=== PATIENT | male | born 1965 | race Caucasian/White ===

== ENCOUNTER → 2016-04-29 | Outpatient (REF) | payer BC ==
[~2016-04-29] MED LIST: AMLO; AMLODIPINE; ASPI1TAB PO; LISIPOW; OMEPPOW18; ZOCO10TA PO
== END ==
LOC: M LAB REF 13:00
PROVIDERS: ATTEND Internal Medicine
DX: E29.1 Testicular hypofunction (principal); N52.9 Male erectile dysfunction, unspecified; E78.00 Pure hypercholesterolemia, unspecified

== ENCOUNTER → 2017-02-05 | Outpatient (REF) | payer BC | LOC: M LAB REF 12:46 | DX: E29.1 Testicular hypofunction (principal) | CPT/HCPCS: 84403 ==

== ENCOUNTER → 2017-02-17 | Outpatient (CLI) | payer BC | LOC: M SLEEP HO 09:00 | DX: G47.30 Sleep apnea, unspecified (principal) | CPT/HCPCS: G0399 ==

== ENCOUNTER → 2017-02-27 | Outpatient (CLI) | payer BC | LOC: M SLEEP 20:00 | DX: G47.33 Obstructive sleep apnea (adult) (pediatric) (principal) | CPT/HCPCS: 95811 ==

== ENCOUNTER → 2018-03-10 | Outpatient (REF) | payer BC | LOC: M LAB REF 12:27 | PROVIDERS: ATTEND Internal Medicine | DX: E29.1 Testicular hypofunction (principal) ==

== ENCOUNTER → 2018-09-22 | Outpatient (REF) | payer BC ==
[~2018-09-22] MED LIST changes: -ASPI1TAB PO; +ASPI81TA26 PO
== END ==
LOC: M LAB REF 12:51
PROVIDERS: ATTEND Internal Medicine
DX: E29.1 Testicular hypofunction (principal)

== ENCOUNTER → 2019-07-11 | Outpatient (CLI) | payer BC | LOC: M LABSMTC 09:01 | PROVIDERS: ATTEND Physician Assistant ==

== ENCOUNTER → 2019-10-02 | Outpatient (CLI) | payer BC | LOC: M LABSMTC 08:47 | PROVIDERS: ATTEND Orthopaedic Surgery | DX: Z20.828 Contact with and (suspected) exposure to other viral communicable diseases (principal) ==

== ENCOUNTER → 2022-12-16 | Outpatient (REF) | payer BC ==
[~2022-12-16] MED LIST changes: +SIMV-252 PO; -ZOCO10TA PO
== END ==
LOC: M LAB REF 16:31
PROVIDERS: ATTEND Physician Assistant Medical
DX: R53.83 Other fatigue (principal); M79.10 Myalgia, unspecified site

== ENCOUNTER → 2022-12-30 | Outpatient (REF) | payer BC ==
[2022-12-30 13:49] LABS: RHEUMATOID FACTOR QUANT < 3.5 IU/ML (<14)
== END ==
LOC: M LAB REF 12:41
PROVIDERS: ATTEND Internal Medicine
DX: R53.83 Other fatigue (principal); M79.10 Myalgia, unspecified site

== ENCOUNTER 2023-01-27 11:06 | Emergency (ER) | payer BC ==
[~2023-01-27] VITALS: Ht 188 cm; Wt 99.6 kg
[2023-01-27] MEDS ORDERED: methocarbamoL 500 MG TAB PO ONE (12:05)
[2023-01-27] MEDS ORDERED: ACETAMINOPHEN 500 MG TAB PO ONE (12:05)
[2023-01-27] MEDS ORDERED: ISOVUE-370 76% 100ML VIAL As Ordered ONE (12:49)
[2023-01-27 12:50] LABS: BASO % 0.3 % (0.0-1.0); HEMATOCRIT 41.6 % (42.0-52.0); HEMOGLOBIN 13.3 g/dl (13.5-17.5); LYMPH # 0.8 10^3/uL (1.5-5.0); LYMPH % 8.3 % (24.0-44.0); MEAN CORPUSCULAR HEMOGLOBIN 27.9 pg (27.0-33.0); MEAN CORPUSCULAR VOLUME 87.4 fl (80.0-96.0); MONO # 0.8 10^3/uL (0.0-0.8); MONO % 8.8 % (2.0-8.0); NEUTROPHILS # 7.4 10^3/uL (1.5-8.5); PLATELET COUNT, AUTOMATED 253 10^3/uL (150-450); RED BLOOD COUNT 4.76 10^6/uL (4.30-6.10)
[2023-01-27 13:11] LABS: ALBUMIN 3.7 G/DL (3.2-5.2); BILIRUBIN,DIRECT 0.3 MG/DL (<0.4); TOTAL PROTEIN 7.3 G/DL (5.7-8.2)
[2023-01-27] MEDS ORDERED: METH-1164 PO (14:34)
[2023-01-27 14:40] VITALS: BP 142/88; TEMP 98.1; O2SAT 98
== END 2023-01-27 14:45 | disposition home or self-care (01) ==
LOC: M ED 11:06
DX: S76.811A Strain of other specified muscles, fascia and tendons at thigh level, right thigh, initial encounter (principal); S76.812A Strain of other specified muscles, fascia and tendons at thigh level, left thigh, initial encounter; X58.XXXA Exposure to other specified factors, initial encounter; Y92.9 Unspecified place or not applicable; Y93.89 Activity, other specified; Y99.9 Unspecified external cause status; N28.1 Cyst of kidney, acquired; N20.0 Calculus of kidney; I10 Essential (primary) hypertension; Z86.19 Personal history of other infectious and parasitic diseases; Z79.82 Long term (current) use of aspirin
CPT/HCPCS: 74177; 80047; 80076; 81001; 83690; 85025; 99284; Q9967

== ENCOUNTER → 2023-02-11 | Outpatient (REF) | payer BC ==
[~2023-02-11] MED LIST changes: +METH-1164 PO
[2023-02-12 20:07] LABS: TESTOSTERONE FREE (DIRECT) 5.2 pg/mL (7.2-24.0)
== END ==
LOC: M LAB REF 13:27
PROVIDERS: ATTEND Internal Medicine
DX: E29.1 Testicular hypofunction (principal)

== ENCOUNTER → 2023-02-12 | Outpatient (REF) | payer BC | LOC: M LAB REF 12:11 | PROVIDERS: ATTEND Internal Medicine | DX: M35.3 Polymyalgia rheumatica (principal) ==

== ENCOUNTER 2023-12-09 07:20 | Outpatient (RCR) | payer BC | END 2023-12-11 | LOC: M PT 07:20 | PROVIDERS: ATTEND Orthopaedic Surgery | DX: Z47.89 Encounter for other orthopedic aftercare (principal) ==

== ENCOUNTER 2024-01-07 07:00 | Outpatient (RCR) | payer BC | END 2024-01-10 | LOC: M PT 07:00 | PROVIDERS: ATTEND Orthopaedic Surgery | DX: S46.012D Strain of muscle(s) and tendon(s) of the rotator cuff of left shoulder, subsequent encounter (principal); Z98.890 Other specified postprocedural states ==

== ENCOUNTER → 2024-02-10 | Outpatient (RCR) | payer BC | LOC: M PT 01-14 07:35 | PROVIDERS: ATTEND Orthopaedic Surgery | DX: Z47.1 Aftercare following joint replacement surgery (principal) ==

== ENCOUNTER 2024-03-10 07:45 | Outpatient (RCR) | payer BC, OTHER | END 2024-03-12 | LOC: M PT 07:45 | PROVIDERS: ATTEND Orthopaedic Surgery | DX: M25.512 Pain in left shoulder (principal) ==

== ENCOUNTER → 2024-03-26 | Outpatient (REF) | payer OTHER | LOC: M SFHCDERM 17:08 | PROVIDERS: ATTEND Physician Assistant | DX: L72.0 Epidermal cyst (principal) ==

== ENCOUNTER 2024-04-07 07:38 | Outpatient (RCR) | payer OTHER | END 2024-04-09 | LOC: M PT 07:38 | PROVIDERS: ATTEND Physician Assistant | DX: M47.26 Other spondylosis with radiculopathy, lumbar region (principal); M43.16 Spondylolisthesis, lumbar region; M48.062 Spinal stenosis, lumbar region with neurogenic claudication ==

== ENCOUNTER 2024-10-04 11:54 | Day surgery (SDC) | payer OTHER ==
[~2024-10-04] VITALS: Ht 190.5 cm; Wt 96.2 kg
[~2024-10-04 11:54] MED LIST changes: +GABA-1172 PO; +LIDOCAINE W/EPINEPHrine 1% 20 ML VIAL XX ONE; +SIMV40TA20 PO; +SODIUM BICARBONATE 8.4% INJ 50MEQ/50ML VIAL XX ONE
[2024-10-04 14:02] VITALS: BP 166/88; TEMP 98.6; O2SAT 100
== END 2024-10-04 14:20 | disposition home or self-care (01) ==
LOC: M SDC 11:54
PROVIDERS: ATTEND Orthopaedic Surgery Hand Surgery
DX: M65.331 Trigger finger, right middle finger (principal); G47.30 Sleep apnea, unspecified; Z79.899 Other long term (current) drug therapy

== ENCOUNTER 2024-12-20 06:54 | Day surgery (SDC) | payer OTHER ==
[~2024-12-20] VITALS: Ht 188 cm; Wt 95.3 kg
[~2024-12-20 06:54] MED LIST changes: +AMLO1TAB24 PO; -LIDOCAINE W/EPINEPHrine 1% 20 ML VIAL XX ONE; +LISI20TA33 PO; +OMEP-173 PO; -SODIUM BICARBONATE 8.4% INJ 50MEQ/50ML VIAL XX ONE; +TEST30SO
[2024-12-20] MEDS ORDERED: LIDOCAINE 2% 100 MG/5 ML SDV (FOR ANES.) As Ordered ONE (07:01)
[2024-12-20 07:54] VITALS: TEMP 97.4
[2024-12-20 08:17] VITALS: BP 144/87; O2SAT 96
== END 2024-12-20 08:22 | disposition home or self-care (01) ==
LOC: M OPP 06:54
PROVIDERS: ATTEND Internal Medicine Gastroenterology
DX: Z12.11 Encounter for screening for malignant neoplasm of colon (principal); K64.0 First degree hemorrhoids; G47.30 Sleep apnea, unspecified; Z79.899 Other long term (current) drug therapy

== ENCOUNTER → 2024-12-29 | Outpatient (POV) | payer OTHER | LOC: M IRPOV 10:15 | PROVIDERS: ATTEND Radiology Diagnostic Radiology | DX: M48.061 Spinal stenosis, lumbar region without neurogenic claudication (principal); M46.96 Unspecified inflammatory spondylopathy, lumbar region ==